=== PATIENT | male | born 1930 | race Caucasian/White ===

== ENCOUNTER 2016-10-25 07:54 | Emergency (ER) | payer MEDICARE, BC ==
[~2016-10-25] VITALS: Ht 172.7 cm; Wt 78.2 kg
[~2016-10-25 07:54] MED LIST: AMBIEN 10MG10 MG PO; ASPIRIN E.C. 8181 MG PO; BP MED; CEPHALEXIN500 M1 PO; DIOVAN160 MG PO; FLOMAX 0.40.4 MG/CAP PO; FLOMAX0.4 MG PO; GABAPENTIN100 MG PO; LEXAPRO 10MG10 MG PO; LOMOTIL 0.025 M1 TAB PO; LORTAB 5/500 501 TAB PO; NYSTATIN OR100 MU/ML PO; PROTONIX 40MG T40 MG PO; TRAMADOL/APAP 31 TAB PO; VICODIN PO
[2016-10-25 07:55] VITALS: TEMP 97.5
[2016-10-25 08:13] LABS: BASO % 0.4 % (0.0-2.0); EOS # 0.1 (0.0-0.7); EOS % 0.5 % (0-4.0); GRAN % 83.1 % (42.2-75.2); HEMATOCRIT 37.7 % (42.0-52.0); HEMOGLOBIN 12.6 g/dl (13.5-18.0); LYMPH # 0.6 (1.2-3.4); LYMPH % 5.9 % (20.0-51.0); MEAN CELL VOLUME 83 fl (80.0-100.0); MEAN CORPUSCULAR HEMOGLOBIN 28 pg (27.0-31.0); MEAN CORPUSCULAR HGB CONC 33 g/dl (33.0-37.0); MEAN PLATELET VOLUME 8.7 fl (7.4-10.4); MONO # 0.9 (0.1-0.6); MONO % 9.7 % (1.7-9.3); PLATELET COUNT 188 K/mm3 (130-400); RED BLOOD COUNT 4.57 M/mm3 (4.20-5.60); REDCELL DISTRIBUTION WIDTH-CV 15.2 % (11.5-14.5); WHITE BLOOD COUNT 9.6 K/mm3 (4.8-10.8)
[2016-10-25 08:25] LABS: ADJUSTED CALCIUM 10.3 mg/dL (8.4-10.2); ALBUMIN 4.2 gm/dL (3.5-5.0); BILIRUBIN,TOTAL 0.8 mg/dL (0.0-1.0); CALCIUM 10.5 mg/dL (8.4-10.2); CREATININE, serum 1.42 mg/dL (0.66-1.25); POTASSIUM 4.4 mmol/L (3.4-5.0); TOTAL PROTEIN 8.2 gm/dL (6.4-8.2)
[2016-10-25] MEDS ORDERED: NORCO 325 MG-101 TAB PO (08:32)
[2016-10-25] MEDS ORDERED: DIOVAN 160MG160 MG PO (08:34)
[2016-10-25 10:02] LABS: PH 6 (5-8); SQUAMOUS EPITHELIAL None Seen /hpf; URINE APPEARANCE Clear; URINE BACTERIA None Seen /hpf; URINE BILIRUBIN Negative (NEGATIVE); URINE BLOOD 3+ (NEGATIVE); URINE COLOR Yellow; URINE GLUCOSE Negative (NEGATIVE); URINE KETONE Negative (NEGATIVE); URINE UROBILINOGEN Negative (NEGATIVE); URINE WBC None Seen /hpf
[2016-10-25 11:15] VITALS: BP 141/86; PULSE 105
== END 2016-10-25 11:20 | disposition home or self-care (01) ==
LOC: COL.ER 07:54
PROVIDERS: Family Medicine
DX: R33.9 Retention of urine, unspecified (principal); I10 Essential (primary) hypertension; M54.5 Low back pain; G89.29 Other chronic pain; E87.1 Hypo-osmolality and hyponatremia; W18.30XA Fall on same level, unspecified, initial encounter; Y92.002 Bathroom of unspecified non-institutional (private) residence as the place of occurrence of the external cause
CPT/HCPCS: A4315; J7030

== ENCOUNTER 2016-11-24 07:29 | Emergency (ER) | payer MEDICARE, BC ==
[~2016-11-24] VITALS: Ht 172.7 cm; Wt 78.2 kg
[~2016-11-24 07:29] MED LIST changes: +DIOVAN 160MG160 MG PO; +NORCO 325 MG-101 TAB PO
[2016-11-24 07:33] VITALS: TEMP 98.2
[2016-11-24 08:45] VITALS: BP 146/92; PULSE 86
== END 2016-11-24 16:33 | disposition home or self-care (01) ==
LOC: COL.ER 07:29
DX: T84.020A Dislocation of internal right hip prosthesis, initial encounter (principal)
CPT/HCPCS: J1885; J3010; J7030; L1830

== ENCOUNTER 2016-11-30 18:55 | Inpatient (IN) | payer MEDICARE, BC ==
[~2016-11-30] VITALS: Ht 172.7 cm; Wt 76.3 kg
[2016-11-30] MEDS ORDERED: HYDROCODONE/ACETAMIN PO (19:15)
[2016-11-30 19:59] LABS: BASO % 0.4 % (0.0-2.0); GRAN # 5.5 (1.4-6.5); GRAN % 75.4 % (42.2-75.2); LYMPH # 0.8 (1.2-3.4); LYMPH % 10.6 % (20.0-51.0); MEAN CELL VOLUME 83 fl (80.0-100.0); MEAN CORPUSCULAR HGB CONC 33 g/dl (33.0-37.0); MEAN PLATELET VOLUME 8.7 fl (7.4-10.4); MONO % 13.3 % (1.7-9.3); PLATELET COUNT 204 K/mm3 (130-400); RED BLOOD COUNT 4.23 M/mm3 (4.20-5.60); REDCELL DISTRIBUTION WIDTH-CV 15.8 % (11.5-14.5); WHITE BLOOD COUNT 7.3 K/mm3 (4.8-10.8)
[2016-11-30 20:02] LABS: HEMATOCRIT 35.2 % (42.0-52.0); HEMOGLOBIN 11.7 g/dl (13.5-18.0); MEAN CORPUSCULAR HEMOGLOBIN 28 pg (27.0-31.0)
[2016-11-30 20:06] LABS: INR 1.1 (0.8-3.0); PROTHROMBIN TIME 12.7 SECONDS (9.7-12.8)
[2016-11-30 20:09] LABS: PARTIAL THROMBOPLASTIN TIME 28.6 SECONDS (26.0-37.0)
[2016-11-30 20:22] LABS: TROPONIN-I 0.023 ng/mL (0.000-0.034)
[2016-11-30 20:32] LABS: PH 6 (5-8); SQUAMOUS EPITHELIAL None Seen /hpf; URINE APPEARANCE Clear; URINE BACTERIA None Seen /hpf; URINE BILIRUBIN Negative (NEGATIVE); URINE BLOOD 1+ (NEGATIVE); URINE COLOR Yellow; URINE GLUCOSE Negative (NEGATIVE); URINE KETONE Negative (NEGATIVE)
[2016-11-30 21:28] LABS: ADJUSTED CALCIUM 9.7 mg/dL (8.4-10.2); ALBUMIN 3.7 gm/dL (3.5-5.0); CALCIUM 9.5 mg/dL (8.4-10.2); CREATININE, serum 1.06 mg/dL (0.66-1.25); POTASSIUM 4.6 mmol/L (3.4-5.0); TOTAL PROTEIN 7.5 gm/dL (6.4-8.2)
[2016-11-30 22:36] VITALS: BP 156/89; PULSE 107; TEMP 99.1
[2016-12-01 02:00] VITALS: BP 129/99; PULSE 109; TEMP 98.5
[2016-12-01 05:10] VITALS: BP 147/95; PULSE 107; TEMP 98.2
[2016-12-01 08:31] LABS: MEAN CELL VOLUME 82 fl (80.0-100.0); MEAN CORPUSCULAR HGB CONC 34 g/dl (33.0-37.0); MEAN PLATELET VOLUME 9.2 fl (7.4-10.4); PLATELET COUNT 185 K/mm3 (130-400); RED BLOOD COUNT 3.85 M/mm3 (4.20-5.60); REDCELL DISTRIBUTION WIDTH-CV 15.9 % (11.5-14.5); WHITE BLOOD COUNT 5.1 K/mm3 (4.8-10.8)
[2016-12-01 08:35] LABS: HEMATOCRIT 31.7 % (42.0-52.0); HEMOGLOBIN 10.8 g/dl (13.5-18.0); MEAN CORPUSCULAR HEMOGLOBIN 28 pg (27.0-31.0)
[2016-12-01 08:54] LABS: CALCIUM 8.7 mg/dL (8.4-10.2); CREATININE, serum 0.89 mg/dL (0.66-1.25); POTASSIUM 3.7 mmol/L (3.4-5.0)
[2016-12-01 10:11] VITALS: BP 115/66; PULSE 94; TEMP 97.8
[2016-12-01 13:44] VITALS: BP 159/73; PULSE 92; TEMP 97.6
[2016-12-01 18:55] VITALS: BP 151/74; PULSE 99; TEMP 97.8
[2016-12-01 20:42] VITALS: BP 144/89; PULSE 96; TEMP 98.5
[2016-12-02] VITALS (10 sets, daily range): BP systolic 113–167; BP diastolic 61–97; PULSE 68–122; TEMP 97.5–98.5
[2016-12-02 12:41] LABS: CALCIUM 8.6 mg/dL (8.4-10.2); CREATININE, serum 0.82 mg/dL (0.66-1.25); POTASSIUM 3.9 mmol/L (3.4-5.0)
[2016-12-02 12:53] LABS: TROPONIN-I 0.028 ng/mL (0.000-0.034)
[2016-12-03 00:40] LABS: BASO % 0.6 % (0.0-2.0); EOS # 0.1 (0.0-0.7); EOS % 2.3 % (0-4.0); GRAN % 56.6 % (42.2-75.2); LYMPH # 0.8 (1.2-3.4); LYMPH % 23.7 % (20.0-51.0); MEAN CELL VOLUME 84 fl (80.0-100.0); MEAN CORPUSCULAR HGB CONC 33 g/dl (33.0-37.0); MONO # 0.6 (0.1-0.6); MONO % 16.2 % (1.7-9.3); PLATELET COUNT 173 K/mm3 (130-400); RED BLOOD COUNT 4.02 M/mm3 (4.20-5.60); REDCELL DISTRIBUTION WIDTH-CV 15.6 % (11.5-14.5); WHITE BLOOD COUNT 3.5 K/mm3 (4.8-10.8)
[2016-12-03 00:43] LABS: HEMATOCRIT 33.6 % (42.0-52.0); HEMOGLOBIN 11.2 g/dl (13.5-18.0); MEAN CORPUSCULAR HEMOGLOBIN 28 pg (27.0-31.0)
[2016-12-03 01:50] VITALS: BP 145/98; PULSE 88; TEMP 98.6
[2016-12-03 05:12] VITALS: BP 134/75; PULSE 88; TEMP 98.9
[2016-12-03 08:08] LABS: CALCIUM 8.9 mg/dL (8.4-10.2); CREATININE, serum 0.89 mg/dL (0.66-1.25); POTASSIUM 3.6 mmol/L (3.4-5.0)
[2016-12-03 09:31] VITALS: BP 120/72; PULSE 91; TEMP 97.9
[2016-12-03] MEDS ORDERED: IPRATROPIUM BROM3 M1 IH (09:41)
[2016-12-03] MEDS ORDERED: LOPRESSOR 225 MG/TAB PO (09:49)
[2016-12-03] MEDS ORDERED: NORCO 325 MG-51 TAB PO (09:49)
[2016-12-03 13:41] VITALS: BP 150/88; PULSE 89; TEMP 98.6
[2016-12-03] MEDS ORDERED: TETRACYCLI500 MG/CAP PO (14:51)
[2016-12-03 14:56] VITALS: BP 150/88; PULSE 89; TEMP 98.6
== END 2016-12-03 16:10 | DRG 640 ==
LOC: COL.ER 18:55 → SURG 21:49
PROVIDERS: Emergency Medicine; Family Medicine
DX: E87.1 Hypo-osmolality and hyponatremia (principal); J18.9 Pneumonia, unspecified organism; N39.0 Urinary tract infection, site not specified; E86.1 Hypovolemia; K21.9 Gastro-esophageal reflux disease without esophagitis; J44.9 Chronic obstructive pulmonary disease, unspecified; B95.8 Unspecified staphylococcus as the cause of diseases classified elsewhere
CPT/HCPCS: 99222-AI; 99232-AI; 99239; A9502; J0456; J0696; J1650; J2785; J7030; J7050

== ENCOUNTER → 2016-12-07 | Outpatient (REF) ==
[~2016-12-07] MED LIST changes: +ALMACONE 360 M360 ML PO; +AMBIEN 5MG TABLE5 MG PO; +AMOXICILLIN 8751 TAB PO; +ARICEPT10 MG PO; +ATROVENT I0.2 MG/1 M IH; +BENADRYL25 M2 PO; +CARDIZEM 30MG T30 MG PO; +CLEOCIN HCL300 MG PO; +DULCOLAX S10 MG/SUPP RC; +FLONASEALLERGY NS; +GENTLE LAXATIVE10 MG RC; +HYDROCODONE/ACETAMIN PO; +IMODIUM 2MG CAPS2 MG PO; +IPRATROPIUM BROM3 M1 IH; +LOPRESSOR 225 MG/TAB PO; +LOPRESSOR 550 MG/TAB PO; +MILK OF MA400 MG/52; +MILK OF MA400 MG/52 PO; +NORCO 325 MG-51 TAB PO; +PREDNISONE20 MG PO; +PRESERVISIONLUT PO; +PULMICORT R1 MG/2 ML IH; +PULMICORT0.25 MG/2 IH; +RT ADVAIR 228 DISKUS IH; +TETRACYCLI500 MG/CAP PO; +TUMS500 MG; +TYLENOL 325MG325 MG PO; +TYLENOL SU650 MG/SUP RC; +ULTRAM 50MG TAB50 MG PO; +ZOFRAN ODT4 MG PO
== END ==
LOC: ZCOL.LAB 18:02
DX: Z01.89 Encounter for other specified special examinations (principal)

== ENCOUNTER 2016-12-16 11:57 | Emergency (ER) | payer MEDICARE, BC ==
[~2016-12-16] VITALS: Ht 172.7 cm; Wt 70.5 kg
[~2016-12-16 11:57] MED LIST changes: -ALMACONE 360 M360 ML PO; -AMBIEN 5MG TABLE5 MG PO; -AMOXICILLIN 8751 TAB PO; -ARICEPT10 MG PO; -ATROVENT I0.2 MG/1 M IH; -BENADRYL25 M2 PO; -CARDIZEM 30MG T30 MG PO; -CLEOCIN HCL300 MG PO; -DULCOLAX S10 MG/SUPP RC; -FLONASEALLERGY NS; -GENTLE LAXATIVE10 MG RC; -IMODIUM 2MG CAPS2 MG PO; -LOPRESSOR 550 MG/TAB PO; -MILK OF MA400 MG/52; -MILK OF MA400 MG/52 PO; -PREDNISONE20 MG PO; -PRESERVISIONLUT PO; -PULMICORT R1 MG/2 ML IH; -PULMICORT0.25 MG/2 IH; -RT ADVAIR 228 DISKUS IH; -TUMS500 MG; -TYLENOL 325MG325 MG PO; -TYLENOL SU650 MG/SUP RC; -ULTRAM 50MG TAB50 MG PO; -ZOFRAN ODT4 MG PO
[2016-12-16 11:58] VITALS: TEMP 97.4
[2016-12-16] MEDS ORDERED: ALMACONE 360 M360 ML PO (12:35)
[2016-12-16] MEDS ORDERED: GENTLE LAXATIVE10 MG RC (12:35)
[2016-12-16] MEDS ORDERED: MILK OF MA400 MG/52 PO (12:35)
[2016-12-16] MEDS ORDERED: TYLENOL 325MG325 MG PO (12:36)
[2016-12-16] MEDS ORDERED: TYLENOL SU650 MG/SUP RC (12:36)
[2016-12-16] MEDS ORDERED: IMODIUM 2MG CAPS2 MG PO (12:37)
[2016-12-16 12:52] LABS: MEAN CELL VOLUME 86 fl (80.0-100.0); MEAN CORPUSCULAR HGB CONC 33 g/dl (33.0-37.0); MEAN PLATELET VOLUME 8.8 fl (7.4-10.4); PLATELET COUNT 286 K/mm3 (130-400); RED BLOOD COUNT 4.21 M/mm3 (4.20-5.60); WHITE BLOOD COUNT 6.9 K/mm3 (4.8-10.8)
[2016-12-16 12:55] LABS: INR 1.2 (0.8-3.0); PROTHROMBIN TIME 13.2 SECONDS (9.7-12.8)
[2016-12-16 12:57] LABS: ADD PATHOLOGY DIFF REVIEW NO; HEMATOCRIT 36.2 % (42.0-52.0); HEMOGLOBIN 11.9 g/dl (13.5-18.0); MEAN CORPUSCULAR HEMOGLOBIN 28 pg (27.0-31.0); PARTIAL THROMBOPLASTIN TIME 25.3 SECONDS (26.0-37.0)
[2016-12-16 13:10] LABS: ADJUSTED CALCIUM 9.7 mg/dL (8.4-10.2); ALBUMIN 3.6 gm/dL (3.5-5.0); BILIRUBIN,TOTAL 0.9 mg/dL (0.0-1.0); CALCIUM 9.4 mg/dL (8.4-10.2); CREATININE, serum 1.9 mg/dL (0.66-1.25); POTASSIUM 4.8 mmol/L (3.4-5.0); TOTAL PROTEIN 7.7 gm/dL (6.4-8.2)
[2016-12-16 13:21] LABS: TROPONIN-I 0.015 ng/mL (0.000-0.034)
[2016-12-16 13:32] LABS: BAND 7 % (0-10); EOSINOPHIL 2 % (0-4); METAMYELOCYTE 1 % (0-0); NEUTROPHILS 67 % (42.0-75.2); TOTAL CELLS COUNTED 100
[2016-12-16 13:33] LABS: PLATELET ESTIMATE NORMAL (NORMAL)
[2016-12-16 17:00] VITALS: BP 135/87; PULSE 93
== END 2016-12-16 17:00 | disposition home or self-care (01) ==
LOC: COL.ER 11:57
PROVIDERS: Emergency Medicine
DX: Z02.89 Encounter for other administrative examinations (principal)
CPT/HCPCS: J7030

== ENCOUNTER 2016-12-17 10:46 | Inpatient (IN) | payer MEDICARE, BC ==
[~2016-12-17] VITALS: Ht 172.7 cm; Wt 73.2 kg
[~2016-12-17 10:46] MED LIST changes: +ALMACONE 360 M360 ML PO; +GENTLE LAXATIVE10 MG RC; +IMODIUM 2MG CAPS2 MG PO; +MILK OF MA400 MG/52 PO; +TYLENOL 325MG325 MG PO; +TYLENOL SU650 MG/SUP RC
[2016-12-17 11:10] LABS: BASO % 0.3 % (0.0-2.0); EOS % 0.1 % (0-4.0); GRAN # 10.1 (1.4-6.5); GRAN % 85.5 % (42.2-75.2); LYMPH # 0.8 (1.2-3.4); LYMPH % 6.9 % (20.0-51.0); MEAN CELL VOLUME 86 fl (80.0-100.0); MEAN CORPUSCULAR HEMOGLOBIN 28 pg (27.0-31.0); MEAN CORPUSCULAR HGB CONC 33 g/dl (33.0-37.0); MONO # 0.8 (0.1-0.6); MONO % 6.8 % (1.7-9.3); PLATELET COUNT 292 K/mm3 (130-400); RED BLOOD COUNT 4.25 M/mm3 (4.20-5.60); REDCELL DISTRIBUTION WIDTH-CV 17.1 % (11.5-14.5); WHITE BLOOD COUNT 11.8 K/mm3 (4.8-10.8)
[2016-12-17 11:13] LABS: HEMATOCRIT 36.7 % (42.0-52.0)
[2016-12-17 11:30] LABS: ALBUMIN 3.6 gm/dL (3.5-5.0); BILIRUBIN,TOTAL 1.3 mg/dL (0.0-1.0); CALCIUM 9.7 mg/dL (8.4-10.2); CREATININE, serum 1.61 mg/dL (0.66-1.25); POTASSIUM 5.4 mmol/L (3.4-5.0); TOTAL PROTEIN 7.8 gm/dL (6.4-8.2)
[2016-12-17 11:39] LABS: ARTERIAL BLD GAS O2 SATURATION 96.2 % (92-100); ARTERIAL BLOOD GAS BASE EXCESS -8.3 (-2-2); ARTERIAL BLOOD GAS HCO3 14.3 meq/L (22-26); ARTERIAL BLOOD GAS PHT 7.43 C (7.35-7.45); ARTERIAL BLOOD GAS PO2 90.3 mmHg (80-100); ARTERIAL BLOOD GAS PO2T 90.3 (80-100); ARTERIAL BLOOD GAS pH 7.43 (7.35-7.45); OXYHEMOGLOBIN 95.1 %
[2016-12-17 11:41] LABS: TROPONIN-I 0.042 ng/mL (0.000-0.034)
[2016-12-17 11:41] LABS: PH 5 (5-8); SQUAMOUS EPITHELIAL 0-2 /hpf; URINE APPEARANCE Clear; URINE BACTERIA None Seen /hpf; URINE BILIRUBIN Negative (NEGATIVE); URINE BLOOD Negative (NEGATIVE); URINE COLOR Yellow; URINE GLUCOSE Negative (NEGATIVE); URINE KETONE Negative (NEGATIVE); URINE RBC 0-2 /hpf; URINE UROBILINOGEN Negative (NEGATIVE); URINE WBC 0-2 /hpf
[2016-12-17 11:48] LABS: ALLEN TEST YES; ALLENS TEST RESULT PASS; ATS? YES
[2016-12-17 15:06] VITALS: BP 121/70; PULSE 110; TEMP 97.9
[2016-12-17 19:38] VITALS: BP 102/62; PULSE 100; TEMP 98.4
[2016-12-17 23:11] VITALS: BP 127/84; PULSE 109; TEMP 98.2
[2016-12-18 04:22] VITALS: BP 139/79; PULSE 108; TEMP 97.4
[2016-12-18 05:22] LABS: ARTERIAL BLD GAS O2 SATURATION 96.2 % (92-100); ARTERIAL BLD GAS TCO2 CT 18.9; ARTERIAL BLOOD GAS BASE EXCESS -4.8 (-2-2); ARTERIAL BLOOD GAS HCO3 18.1 meq/L (22-26); ARTERIAL BLOOD GAS PHT 7.45 C (7.35-7.45); ARTERIAL BLOOD GAS PO2 85.9 mmHg (80-100); ARTERIAL BLOOD GAS PO2T 85.9 (80-100); ARTERIAL BLOOD GAS pH 7.45 (7.35-7.45); OXYHEMOGLOBIN 95.4 %
[2016-12-18 05:23] LABS: ARTERIAL BLOOD GAS HCO3 18.1 meq/L (22-26); ARTERIAL BLOOD GAS PO2 85.9 mmHg (80-100); ARTERIAL BLOOD GAS pH 7.45 (7.35-7.45)
[2016-12-18 05:24] LABS: ALLEN TEST YES; ALLENS TEST RESULT PASS; ARTERIAL BLD GAS O2 SATURATION 96.2 % (92-100); ARTERIAL BLD GAS TCO2 CT 18.9; ARTERIAL BLOOD GAS BASE EXCESS -4.8 (-2-2); ATS? YES
[2016-12-18 07:50] LABS: BASO % 0.6 % (0.0-2.0); EOS # 0.1 (0.0-0.7); EOS % 1.3 % (0-4.0); GRAN # 4.8 (1.4-6.5); LYMPH # 0.8 (1.2-3.4); MEAN CELL VOLUME 86 fl (80.0-100.0); MEAN CORPUSCULAR HGB CONC 33 g/dl (33.0-37.0); MEAN PLATELET VOLUME 9.2 fl (7.4-10.4); MONO # 0.7 (0.1-0.6); MONO % 10.6 % (1.7-9.3); PLATELET COUNT 226 K/mm3 (130-400); RED BLOOD COUNT 3.34 M/mm3 (4.20-5.60); REDCELL DISTRIBUTION WIDTH-CV 17.2 % (11.5-14.5); WHITE BLOOD COUNT 6.3 K/mm3 (4.8-10.8)
[2016-12-18 07:53] VITALS: BP 138/75; PULSE 94; TEMP 98.9
[2016-12-18 07:57] LABS: CALCIUM 8.7 mg/dL (8.4-10.2); CREATININE, serum 1.25 mg/dL (0.66-1.25); POTASSIUM 4.5 mmol/L (3.4-5.0)
[2016-12-18 07:59] LABS: HEMATOCRIT 28.8 % (42.0-52.0); HEMOGLOBIN 9.4 g/dl (13.5-18.0); MEAN CORPUSCULAR HEMOGLOBIN 28 pg (27.0-31.0)
[2016-12-18 08:06] LABS: TROPONIN-I 0.024 ng/mL (0.000-0.034)
[2016-12-18 12:34] VITALS: BP 128/72; PULSE 105; TEMP 98.7
[2016-12-18 14:37] LABS: HEMATOCRIT 28.3 % (42.0-52.0); HEMOGLOBIN 9.3 g/dl (13.5-18.0)
[2016-12-18 15:59] VITALS: BP 125/74; PULSE 99; TEMP 98.3
[2016-12-18 19:44] VITALS: BP 127/66; PULSE 97; TEMP 98.6
[2016-12-18 23:44] VITALS: BP 117/86; PULSE 87; TEMP 98.5
[2016-12-19 04:05] VITALS: BP 158/92; PULSE 76; TEMP 98.4
[2016-12-19 08:39] VITALS: BP 130/79; PULSE 103; TEMP 97.9
[2016-12-19 09:12] LABS: BASO % 0.6 % (0.0-2.0); EOS # 0.2 (0.0-0.7); EOS % 3.8 % (0-4.0); GRAN # 3.3 (1.4-6.5); GRAN % 66.6 % (42.2-75.2); LYMPH # 0.8 (1.2-3.4); LYMPH % 16.9 % (20.0-51.0); MEAN CELL VOLUME 87 fl (80.0-100.0); MEAN CORPUSCULAR HGB CONC 33 g/dl (33.0-37.0); MEAN PLATELET VOLUME 9.4 fl (7.4-10.4); MONO # 0.6 (0.1-0.6); MONO % 11.7 % (1.7-9.3); PLATELET COUNT 241 K/mm3 (130-400); RED BLOOD COUNT 3.56 M/mm3 (4.20-5.60); REDCELL DISTRIBUTION WIDTH-CV 17.2 % (11.5-14.5)
[2016-12-19 09:31] LABS: HEMOGLOBIN 10.1 g/dl (13.5-18.0); MEAN CORPUSCULAR HEMOGLOBIN 28 pg (27.0-31.0)
[2016-12-19 09:40] LABS: ADJUSTED CALCIUM 9.8 mg/dL (8.4-10.2); ALBUMIN 2.7 gm/dL (3.5-5.0); BILIRUBIN,TOTAL 0.8 mg/dL (0.0-1.0); CALCIUM 8.8 mg/dL (8.4-10.2); CREATININE, serum 1.18 mg/dL (0.66-1.25); POTASSIUM 4.1 mmol/L (3.4-5.0); TOTAL PROTEIN 6.4 gm/dL (6.4-8.2)
[2016-12-19 11:45] VITALS: BP 101/60; PULSE 98; TEMP 98.6
[2016-12-19 15:24] VITALS: BP 122/75; PULSE 87; TEMP 98.1
[2016-12-19 20:55] VITALS: BP 117/62; PULSE 74; TEMP 98.2
[2016-12-19 23:23] VITALS: BP 166/85; PULSE 104; TEMP 98.7
[2016-12-20 04:05] VITALS: BP 148/94; PULSE 97; TEMP 98.9
[2016-12-20 07:40] VITALS: BP 149/85; PULSE 115; TEMP 97.6
[2016-12-20 07:52] LABS: MEAN CELL VOLUME 86 fl (80.0-100.0); MEAN CORPUSCULAR HGB CONC 33 g/dl (33.0-37.0); MEAN PLATELET VOLUME 9.4 fl (7.4-10.4); PLATELET COUNT 240 K/mm3 (130-400); RED BLOOD COUNT 3.82 M/mm3 (4.20-5.60); REDCELL DISTRIBUTION WIDTH-CV 17.1 % (11.5-14.5); WHITE BLOOD COUNT 5.3 K/mm3 (4.8-10.8)
[2016-12-20 07:58] LABS: HEMOGLOBIN 10.9 g/dl (13.5-18.0); MEAN CORPUSCULAR HEMOGLOBIN 29 pg (27.0-31.0)
[2016-12-20 08:16] LABS: ADJUSTED CALCIUM 9.9 mg/dL (8.4-10.2); ALBUMIN 2.8 gm/dL (3.5-5.0); BILIRUBIN,TOTAL 0.9 mg/dL (0.0-1.0); C-REACTIVE PROTEIN 5.1 mg/dL (0.0-0.9); CALCIUM 8.9 mg/dL (8.4-10.2); CREATININE, serum 1.14 mg/dL (0.66-1.25); POTASSIUM 3.9 mmol/L (3.4-5.0); TOTAL PROTEIN 6.6 gm/dL (6.4-8.2)
[2016-12-20 08:37] LABS: THYROID STIMULATING HORMONE 2.23 uIU/mL (0.465-4.680)
[2016-12-20 12:10] VITALS: BP 103/63; PULSE 73; TEMP 97.8
[2016-12-20 15:33] VITALS: BP 104/67; PULSE 73; TEMP 97.7
[2016-12-20 19:40] VITALS: BP 131/74; PULSE 82; TEMP 98.5
[2016-12-20 23:43] VITALS: BP 127/63; PULSE 71; TEMP 97.7
[2016-12-21 03:37] VITALS: BP 124/85; PULSE 67; TEMP 98.1
[2016-12-21 08:46] VITALS: BP 155/89; PULSE 82; TEMP 98.3
[2016-12-21 11:09] VITALS: BP 126/71; PULSE 72; TEMP 98.6
[2016-12-21] MEDS ORDERED: LOPRESSOR 550 MG/TAB PO (12:57)
[2016-12-21] MEDS ORDERED: CARDIZEM 30MG T30 MG PO (13:02)
[2016-12-21] MEDS ORDERED: NORCO 325 MG-51 TAB PO (13:03)
[2016-12-21] MEDS ORDERED: AMOXICILLIN 8751 TAB PO (13:17)
[2016-12-21 13:54] VITALS: BP 126/71; PULSE 72; TEMP 98.6
[2016-12-23 09:12] LABS: ATS? YES
== END 2016-12-21 15:29 | DRG 871 ==
LOC: COL.ER 10:46 → MEDICAL 12:25
PROVIDERS: Family Medicine; Nurse Practitioner Family
DX: A41.9 Sepsis, unspecified organism (principal); I21.4 Non-ST elevation (NSTEMI) myocardial infarction; K57.32 Diverticulitis of large intestine without perforation or abscess without bleeding; N17.9 Acute kidney failure, unspecified; E87.1 Hypo-osmolality and hyponatremia; I47.1 Supraventricular tachycardia; Z66 Do not resuscitate; J44.9 Chronic obstructive pulmonary disease, unspecified; I10 Essential (primary) hypertension; Z85.46 Personal history of malignant neoplasm of prostate; Z87.891 Personal history of nicotine dependence; E87.5 Hyperkalemia; Z85.01 Personal history of malignant neoplasm of esophagus; E86.0 Dehydration
CPT/HCPCS: 99231-AI; 99232-AI; 99233-AI; 99239; J1644; J1650; J2405; J2543; J7030; J7050

== ENCOUNTER 2017-02-22 10:56 | Emergency (ER) | payer MEDICARE, BC ==
[~2017-02-22 10:56] MED LIST changes: +AMOXICILLIN 8751 TAB PO; +CARDIZEM 30MG T30 MG PO; +LOPRESSOR 550 MG/TAB PO
[2017-02-22 10:59] VITALS: TEMP 97.8
[2017-02-22 11:54] LABS: BASO # 0.1 (0.0-0.2); BASO % 0.9 % (0.0-2.0); EOS # 0.1 (0.0-0.7); EOS % 1.9 % (0-4.0); GRAN # 3.9 (1.4-6.5); HEMATOCRIT 44.3 % (42.0-52.0); HEMOGLOBIN 14.4 g/dl (13.5-18.0); LYMPH # 1.5 (1.2-3.4); MEAN CELL VOLUME 88 fl (80.0-100.0); MEAN CORPUSCULAR HEMOGLOBIN 29 pg (27.0-31.0); MEAN CORPUSCULAR HGB CONC 33 g/dl (33.0-37.0); MEAN PLATELET VOLUME 9.1 fl (7.4-10.4); MONO # 0.8 (0.1-0.6); MONO % 12.9 % (1.7-9.3); PLATELET COUNT 208 K/mm3 (130-400); RED BLOOD COUNT 5.04 M/mm3 (4.20-5.60); WHITE BLOOD COUNT 6.4 K/mm3 (4.8-10.8)
[2017-02-22 11:56] LABS: PH 7 (5-8); SQUAMOUS EPITHELIAL 0-2 /hpf; URINE APPEARANCE Clear; URINE BACTERIA None Seen /hpf; URINE BILIRUBIN Negative (NEGATIVE); URINE BLOOD 1+ (NEGATIVE); URINE COLOR Yellow; URINE GLUCOSE Negative (NEGATIVE); URINE KETONE Negative (NEGATIVE); URINE UROBILINOGEN Negative (NEGATIVE); URINE WBC 0-2 /hpf
[2017-02-22 12:02] LABS: CALCIUM 9.7 mg/dL (8.4-10.2); CREATININE, serum 1.07 mg/dL (0.66-1.25); POTASSIUM 4.8 mmol/L (3.4-5.0)
[2017-02-22 12:13] LABS: TROPONIN-I 0.014 ng/mL (0.000-0.034)
[2017-02-22] MEDS ORDERED: BENADRYL25 M2 PO (14:09)
[2017-02-22] MEDS ORDERED: AMBIEN 10MG10 MG PO (14:09)
[2017-02-22 14:25] VITALS: BP 141/78; PULSE 89
== END 2017-02-22 14:26 | disposition home or self-care (01) ==
LOC: COL.ER 10:56
PROVIDERS: Emergency Medicine
DX: Z04.3 Encounter for examination and observation following other accident (principal); Z91.81 History of falling; W19.XXXA Unspecified fall, initial encounter; I10 Essential (primary) hypertension; J44.9 Chronic obstructive pulmonary disease, unspecified
CPT/HCPCS: J7030

== ENCOUNTER 2017-04-06 15:02 | Inpatient (IN) | payer MEDICARE, BC ==
[~2017-04-06] VITALS: Ht 170.2 cm; Wt 68.0 kg
[~2017-04-06 15:02] MED LIST changes: -AMBIEN 5MG TABLE5 MG PO; -ARICEPT10 MG PO; -ATROVENT I0.2 MG/1 M IH; -CLEOCIN HCL300 MG PO; -DULCOLAX S10 MG/SUPP RC; -FLONASEALLERGY NS; -MILK OF MA400 MG/52; -PREDNISONE20 MG PO; -PRESERVISIONLUT PO; -PULMICORT R1 MG/2 ML IH; -PULMICORT0.25 MG/2 IH; -RT ADVAIR 228 DISKUS IH; -TUMS500 MG; -ULTRAM 50MG TAB50 MG PO; -ZOFRAN ODT4 MG PO
[2017-04-06] MEDS ORDERED: MILK OF MA400 MG/52 (15:11)
[2017-04-06] MEDS ORDERED: ALMACONE 360 M360 ML PO (15:11)
[2017-04-06] MEDS ORDERED: DULCOLAX S10 MG/SUPP RC (15:12)
[2017-04-06] MEDS ORDERED: TYLENOL 325MG325 MG PO (15:13)
[2017-04-06] MEDS ORDERED: TYLENOL SU650 MG/SUP RC (15:13)
[2017-04-06] MEDS ORDERED: IMODIUM 2MG CAPS2 MG PO (15:14)
[2017-04-06] MEDS ORDERED: NORCO 325 MG-51 TAB PO (15:15)
[2017-04-06] MEDS ORDERED: PRESERVISIONLUT PO (15:15)
[2017-04-06] MEDS ORDERED: ATROVENT I0.2 MG/1 M IH (15:16)
[2017-04-06] MEDS ORDERED: ASPIRIN E.C. 8181 MG PO (15:16)
[2017-04-06] MEDS ORDERED: ZOFRAN ODT4 MG PO (15:17)
[2017-04-06] MEDS ORDERED: LOPRESSOR 550 MG/TAB PO (15:17)
[2017-04-06] MEDS ORDERED: TUMS500 MG (15:18)
[2017-04-06] MEDS ORDERED: CARDIZEM 30MG T30 MG PO (15:18)
[2017-04-06] MEDS ORDERED: AMBIEN 5MG TABLE5 MG PO (15:19)
[2017-04-06] MEDS ORDERED: BENADRYL25 M2 PO (15:19)
[2017-04-06] MEDS ORDERED: FLOMAX 0.40.4 MG/CAP PO (15:19)
[2017-04-06] MEDS ORDERED: ARICEPT10 MG PO (15:20)
[2017-04-06 15:37] LABS: BASO # 0.1 (0.0-0.2); BASO % 0.8 % (0.0-2.0); EOS # 0.2 (0.0-0.7); EOS % 3.2 % (0-4.0); GRAN # 3.8 (1.4-6.5); GRAN % 63.1 % (42.2-75.2); HEMOGLOBIN 12.1 g/dl (13.5-18.0); LYMPH # 1.1 (1.2-3.4); MEAN CELL VOLUME 80 fl (80.0-100.0); MEAN CORPUSCULAR HEMOGLOBIN 28 pg (27.0-31.0); MEAN CORPUSCULAR HGB CONC 35 g/dl (33.0-37.0); MEAN PLATELET VOLUME 8.4 fl (7.4-10.4); MONO # 0.8 (0.1-0.6); MONO % 13.4 % (1.7-9.3); PLATELET COUNT 167 K/mm3 (130-400); RED BLOOD COUNT 4.34 M/mm3 (4.20-5.60); REDCELL DISTRIBUTION WIDTH-CV 13.9 % (11.5-14.5)
[2017-04-06 15:39] LABS: INR 1.1 (0.8-3.0); PROTHROMBIN TIME 11.7 SECONDS (9.7-12.8)
[2017-04-06 15:42] LABS: HEMATOCRIT 34.8 % (42.0-52.0); PARTIAL THROMBOPLASTIN TIME 26.9 SECONDS (26.0-37.0)
[2017-04-06 15:50] LABS: ADJUSTED CALCIUM 9.6 mg/dL (8.4-10.2); ALANINE AMINOTRANSFERASE 20 U/L (21-72); ALBUMIN 3.6 gm/dL (3.5-5.0); ALKALINE PHOSPHATASE 58 U/L (50-136); ANION GAP 10 mmol/L (7-16); BILIRUBIN,TOTAL 0.6 mg/dL (0.0-1.0); BLOOD UREA NITROGEN 13 mg/dL (9-20); CALCIUM 9.3 mg/dL (8.4-10.2); CARBON DIOXIDE 19 mmol/L (22-30); CHLORIDE 91 mmol/L (98-107); CREATININE, serum 0.88 mg/dL (0.66-1.25); GLUCOSE 98 mg/dL (74-106); POTASSIUM 3.8 mmol/L (3.4-5.0); SODIUM 120 mmol/L (137-145); TOTAL PROTEIN 7.2 gm/dL (6.4-8.2)
[2017-04-06 16:03] LABS: TROPONIN-I < 0.012 ng/mL (0.000-0.034)
[2017-04-06 17:17] LABS: PH 6 (5-8); SQUAMOUS EPITHELIAL 0-2 /hpf; URINE APPEARANCE Clear; URINE BACTERIA None Seen /hpf; URINE BILIRUBIN Negative (NEGATIVE); URINE BLOOD Negative (NEGATIVE); URINE COLOR Yellow; URINE GLUCOSE Negative (NEGATIVE); URINE KETONE Trace (NEGATIVE); URINE RBC 0-2 /hpf; URINE UROBILINOGEN Negative (NEGATIVE); URINE WBC 0-2 /hpf
[2017-04-06 18:24] LABS: B-TYPE NATRIURETIC PEPTIDE 717 pg/mL (0-450)
[2017-04-06 18:33] VITALS: BP 134/76; PULSE 69; TEMP 98
[2017-04-06 20:00] VITALS: BP 152/76; PULSE 83; TEMP 97.5
[2017-04-07 04:00] VITALS: BP 154/78; PULSE 67; TEMP 97.6
[2017-04-07 07:16] LABS: BASO % 0.8 % (0.0-2.0); EOS # 0.2 (0.0-0.7); EOS % 3.2 % (0-4.0); GRAN # 3.6 (1.4-6.5); GRAN % 67.4 % (42.2-75.2); LYMPH # 0.8 (1.2-3.4); LYMPH % 15.8 % (20.0-51.0); MEAN CELL VOLUME 82 fl (80.0-100.0); MEAN CORPUSCULAR HGB CONC 34 g/dl (33.0-37.0); MEAN PLATELET VOLUME 8.8 fl (7.4-10.4); MONO # 0.7 (0.1-0.6); MONO % 12.4 % (1.7-9.3); PLATELET COUNT 164 K/mm3 (130-400); RED BLOOD COUNT 4.24 M/mm3 (4.20-5.60); REDCELL DISTRIBUTION WIDTH-CV 14.2 % (11.5-14.5); WHITE BLOOD COUNT 5.3 K/mm3 (4.8-10.8)
[2017-04-07 07:21] LABS: HEMATOCRIT 34.6 % (42.0-52.0); HEMOGLOBIN 11.9 g/dl (13.5-18.0); MEAN CORPUSCULAR HEMOGLOBIN 28 pg (27.0-31.0)
[2017-04-07 07:33] LABS: CALCIUM 8.6 mg/dL (8.4-10.2); CREATININE, serum 0.8 mg/dL (0.66-1.25); POTASSIUM 3.3 mmol/L (3.4-5.0)
[2017-04-07 10:01] VITALS: BP 144/103; PULSE 69; TEMP 98.4
[2017-04-07 13:08] VITALS: BP 130/58; PULSE 54
[2017-04-07 15:09] VITALS: BP 119/61; PULSE 55; TEMP 97.9
[2017-04-07 20:27] VITALS: BP 116/80; PULSE 77; TEMP 97.8
[2017-04-07 22:28] VITALS: BP 114/69; PULSE 60; TEMP 98.3
[2017-04-08 04:38] VITALS: BP 127/85; PULSE 77; TEMP 98.6
[2017-04-08 07:30] VITALS: BP 1055/77; BP 155/77; PULSE 88; TEMP 97
[2017-04-08 08:01] LABS: CALCIUM 9.5 mg/dL (8.4-10.2); CREATININE, serum 0.76 mg/dL (0.66-1.25); MAGNESIUM 1.6 mg/dL (1.6-2.3)
[2017-04-08 11:45] VITALS: BP 103/62; PULSE 68; TEMP 96.3
[2017-04-08 16:24] VITALS: BP 151/80; PULSE 82; TEMP 98.7
[2017-04-08 19:29] VITALS: BP 151/69; PULSE 94; TEMP 98.5
[2017-04-09 00:33] VITALS: BP 138/75; PULSE 74; TEMP 98.5
[2017-04-09 03:23] VITALS: BP 138/75; PULSE 84; TEMP 98
[2017-04-09 08:25] VITALS: BP 138/74; PULSE 78; TEMP 98.1
[2017-04-09 08:58] LABS: CALCIUM 8.5 mg/dL (8.4-10.2); CREATININE, serum 0.65 mg/dL (0.66-1.25)
[2017-04-09 09:29] LABS: BASO % 0.6 % (0.0-2.0); EOS # 0.2 (0.0-0.7); EOS % 3.2 % (0-4.0); GRAN # 3.8 (1.4-6.5); GRAN % 62.1 % (42.2-75.2); HEMOGLOBIN 11.8 g/dl (13.5-18.0); LYMPH # 1.3 (1.2-3.4); LYMPH % 20.8 % (20.0-51.0); MEAN CELL VOLUME 80 fl (80.0-100.0); MEAN CORPUSCULAR HEMOGLOBIN 28 pg (27.0-31.0); MEAN CORPUSCULAR HGB CONC 35 g/dl (33.0-37.0); MEAN PLATELET VOLUME 9.7 fl (7.4-10.4); MONO # 0.8 (0.1-0.6); MONO % 12.8 % (1.7-9.3); PLATELET COUNT 164 K/mm3 (130-400); RED BLOOD COUNT 4.24 M/mm3 (4.20-5.60); REDCELL DISTRIBUTION WIDTH-CV 14.7 % (11.5-14.5); WHITE BLOOD COUNT 6.2 K/mm3 (4.8-10.8)
[2017-04-09 11:11] VITALS: BP 121/65; PULSE 62; TEMP 97.4
[2017-04-09 16:04] VITALS: BP 157/89; PULSE 69
[2017-04-09 19:12] VITALS: BP 157/80; PULSE 79; TEMP 98.3
[2017-04-10 00:25] VITALS: BP 132/72; PULSE 98; TEMP 98.4
[2017-04-10 02:52] VITALS: BP 152/84; PULSE 77; TEMP 98.3
[2017-04-10 07:38] VITALS: BP 110/76; PULSE 91; TEMP 98.1
[2017-04-10 10:29] LABS: BASO # 0.1 (0.0-0.2); BASO % 0.6 % (0.0-2.0); EOS # 0.2 (0.0-0.7); EOS % 2.4 % (0-4.0); GRAN # 6.3 (1.4-6.5); GRAN % 76.3 % (42.2-75.2); HEMATOCRIT 40.8 % (42.0-52.0); HEMOGLOBIN 14.1 g/dl (13.5-18.0); LYMPH # 0.8 (1.2-3.4); LYMPH % 9.2 % (20.0-51.0); MEAN CELL VOLUME 81 fl (80.0-100.0); MEAN CORPUSCULAR HEMOGLOBIN 28 pg (27.0-31.0); MEAN CORPUSCULAR HGB CONC 35 g/dl (33.0-37.0); MEAN PLATELET VOLUME 9.5 fl (7.4-10.4); MONO # 0.9 (0.1-0.6); MONO % 11.3 % (1.7-9.3); PLATELET COUNT 221 K/mm3 (130-400); RED BLOOD COUNT 5.03 M/mm3 (4.20-5.60); REDCELL DISTRIBUTION WIDTH-CV 14.7 % (11.5-14.5); WHITE BLOOD COUNT 8.2 K/mm3 (4.8-10.8)
[2017-04-10 10:43] LABS: CALCIUM 9.5 mg/dL (8.4-10.2); CREATININE, serum 0.77 mg/dL (0.66-1.25); MAGNESIUM 1.5 mg/dL (1.6-2.3); POTASSIUM 3.9 mmol/L (3.4-5.0)
[2017-04-10 11:03] VITALS: BP 119/67; PULSE 79; TEMP 98.2
[2017-04-10 14:07] LABS: PH 5 (5-8); SQUAMOUS EPITHELIAL None Seen /hpf; URINE APPEARANCE Clear; URINE BACTERIA None Seen /hpf; URINE BILIRUBIN Negative (NEGATIVE); URINE BLOOD 1+ (NEGATIVE); URINE COLOR Yellow; URINE GLUCOSE Negative (NEGATIVE); URINE KETONE Negative (NEGATIVE); URINE WBC 0-2 /hpf
[2017-04-10 14:44] VITALS: BP 113/55; PULSE 81; TEMP 99.1
[2017-04-10 21:22] VITALS: BP 115/59; PULSE 92; TEMP 98.1
[2017-04-11] VITALS (7 sets, daily range): BP systolic 102–123; BP diastolic 44–67; PULSE 79–95; TEMP 97.4–98.3
[2017-04-11 11:28] LABS: CALCIUM 9.1 mg/dL (8.4-10.2); CREATININE, serum 0.85 mg/dL (0.66-1.25); MAGNESIUM 2.1 mg/dL (1.6-2.3); POTASSIUM 3.6 mmol/L (3.4-5.0)
[2017-04-12 03:18] VITALS: BP 122/63; PULSE 91; TEMP 98.7
[2017-04-12 07:29] VITALS: BP 140/64; PULSE 95; TEMP 97.7
[2017-04-12 10:53] LABS: CALCIUM 8.8 mg/dL (8.4-10.2); CREATININE, serum 0.96 mg/dL (0.66-1.25); POTASSIUM 4.8 mmol/L (3.4-5.0)
[2017-04-12 12:30] VITALS: BP 123/56; PULSE 111; TEMP 98.1
[2017-04-12 15:25] VITALS: BP 137/65; PULSE 96; TEMP 97.7
[2017-04-12 19:40] VITALS: BP 132/55; BP 166/79; PULSE 66; PULSE 84
[2017-04-12 22:34] VITALS: BP 115/63; PULSE 96; TEMP 98.4
[2017-04-13 04:10] VITALS: BP 136/66; PULSE 91; TEMP 98.5
[2017-04-13] MEDS ORDERED: PULMICORT R1 MG/2 ML IH (07:32)
[2017-04-13] MEDS ORDERED: NORCO 325 MG-51 TAB PO (07:35)
[2017-04-13] MEDS ORDERED: ULTRAM 50MG TAB50 MG PO (07:35)
[2017-04-13 07:45] LABS: CALCIUM 8.6 mg/dL (8.4-10.2); CREATININE, serum 0.89 mg/dL (0.66-1.25); POTASSIUM 5.3 mmol/L (3.4-5.0)
[2017-04-13 08:48] VITALS: BP 148/81; PULSE 89; TEMP 98.4
[2017-04-13] MEDS ORDERED: CLEOCIN HCL300 MG PO (09:14)
[2017-04-13] MEDS ORDERED: PREDNISONE20 MG PO (09:15)
[2017-04-13] MEDS ORDERED: RT ADVAIR 228 DISKUS IH (09:16)
[2017-04-13] MEDS ORDERED: FLONASEALLERGY NS (09:16)
[2017-04-13 11:42] VITALS: BP 148/81; PULSE 89; TEMP 98.4
== END 2017-04-13 13:29 | DRG 641 ==
LOC: COL.ER 15:02 → MEDICAL 17:17
PROVIDERS: Emergency Medicine; Internal Medicine; Nurse Practitioner Family; Physician Assistant
DX: E87.1 Hypo-osmolality and hyponatremia (principal); E44.0 Moderate protein-calorie malnutrition; I47.1 Supraventricular tachycardia; E87.5 Hyperkalemia; E86.1 Hypovolemia; J44.9 Chronic obstructive pulmonary disease, unspecified; I10 Essential (primary) hypertension; Z85.01 Personal history of malignant neoplasm of esophagus; Z87.891 Personal history of nicotine dependence; D64.9 Anemia, unspecified; T18.120A Food in esophagus causing compression of trachea, initial encounter
CPT/HCPCS: 99223-AI; 99232-AI; 99233-AI; 99239; J1650; J1940; J2543; J2930; J3475; J3480; J7030; J7050; J7512

== ENCOUNTER → 2017-04-06 | Outpatient (CLI) | payer MEDICARE, BC ==
[~2017-04-06] MED LIST changes: +AMBIEN 5MG TABLE5 MG PO; +ARICEPT10 MG PO; +ATROVENT I0.2 MG/1 M IH; +BENADRYL25 M2 PO; +CLEOCIN HCL300 MG PO; +DULCOLAX S10 MG/SUPP RC; +FLONASEALLERGY NS; +MILK OF MA400 MG/52; +PREDNISONE20 MG PO; +PRESERVISIONLUT PO; +PULMICORT R1 MG/2 ML IH; +PULMICORT0.25 MG/2 IH; +RT ADVAIR 228 DISKUS IH; +TUMS500 MG; +ULTRAM 50MG TAB50 MG PO; +ZOFRAN ODT4 MG PO
[2017-04-06 14:09] LABS: ADJUSTED CALCIUM 9.8 mg/dL (8.4-10.2); ALBUMIN 3.2 gm/dL (3.5-5.0); BILIRUBIN,TOTAL 0.6 mg/dL (0.0-1.0); CALCIUM 9.2 mg/dL (8.4-10.2); CREATININE, serum 0.93 mg/dL (0.66-1.25); POTASSIUM 3.8 mmol/L (3.4-5.0); TOTAL PROTEIN 6.4 gm/dL (6.4-8.2)
[2017-04-06 14:11] LABS: BASO % 0.7 % (0.0-2.0); EOS # 0.2 (0.0-0.7); EOS % 2.7 % (0-4.0); GRAN # 3.8 (1.4-6.5); GRAN % 63.9 % (42.2-75.2); LYMPH # 1.1 (1.2-3.4); LYMPH % 18.8 % (20.0-51.0); MEAN CELL VOLUME 81 fl (80.0-100.0); MEAN CORPUSCULAR HGB CONC 35 g/dl (33.0-37.0); MEAN PLATELET VOLUME 9.3 fl (7.4-10.4); MONO # 0.8 (0.1-0.6); MONO % 13.4 % (1.7-9.3); PLATELET COUNT 177 K/mm3 (130-400); RED BLOOD COUNT 4.08 M/mm3 (4.20-5.60); REDCELL DISTRIBUTION WIDTH-CV 14.2 % (11.5-14.5); WHITE BLOOD COUNT 5.9 K/mm3 (4.8-10.8)
[2017-04-06 14:13] LABS: HEMOGLOBIN 11.4 g/dl (13.5-18.0); MEAN CORPUSCULAR HEMOGLOBIN 28 pg (27.0-31.0)
== END ==
LOC: ZCOL.LAB 11:30
PROVIDERS: Family Medicine
DX: Z01.89 Encounter for other specified special examinations (principal)

== ENCOUNTER 2017-04-25 19:56 | Emergency (ER) | payer MEDICARE, BC ==
[~2017-04-25] VITALS: Ht 170.2 cm; Wt 69.1 kg
[~2017-04-25 19:56] MED LIST changes: +AMBIEN 5MG TABLE5 MG PO; +ARICEPT10 MG PO; +ATROVENT I0.2 MG/1 M IH; +CLEOCIN HCL300 MG PO; +DULCOLAX S10 MG/SUPP RC; +FLONASEALLERGY NS; +MILK OF MA400 MG/52; +PREDNISONE20 MG PO; +PRESERVISIONLUT PO; +PULMICORT R1 MG/2 ML IH; +RT ADVAIR 228 DISKUS IH; +TUMS500 MG; +ULTRAM 50MG TAB50 MG PO; +ZOFRAN ODT4 MG PO
[2017-04-25 19:57] VITALS: TEMP 98
[2017-04-25] MEDS ORDERED: ALMACONE 360 M360 ML PO (20:07)
[2017-04-25] MEDS ORDERED: DULCOLAX S10 MG/SUPP RC (20:07)
[2017-04-25] MEDS ORDERED: IMODIUM 2MG CAPS2 MG PO (20:08)
[2017-04-25] MEDS ORDERED: IPRATROPIUM BROM3 M1 IH (20:11)
[2017-04-25] MEDS ORDERED: PULMICORT0.25 MG/2 IH (20:14)
[2017-04-25 21:52] VITALS: BP 118/74; PULSE 98
== END 2017-04-25 21:53 | disposition home or self-care (01) ==
LOC: COL.ER 19:56
DX: T84.028A Dislocation of other internal joint prosthesis, initial encounter (principal); Z96.611 Presence of right artificial shoulder joint; I10 Essential (primary) hypertension; J44.9 Chronic obstructive pulmonary disease, unspecified; F03.90 Unspecified dementia, unspecified severity, without behavioral disturbance, psychotic disturbance, mood disturbance, and anxiety; Z85.01 Personal history of malignant neoplasm of esophagus

== ENCOUNTER → 2017-12-17 | Outpatient (REF) ==
[~2017-12-17] MED LIST changes: +PULMICORT0.25 MG/2 IH
[2017-12-17 13:28] LABS: BASO % 0.8 % (0.0-2.0); EOS # 0.2 (0.0-0.7); GRAN # 3.3 (1.4-6.5); LYMPH # 1.2 (1.2-3.4); LYMPH % 22.5 % (20.0-51.0); MEAN CELL VOLUME 81 fl (80.0-100.0); MEAN CORPUSCULAR HEMOGLOBIN 27 pg (27.0-31.0); MEAN CORPUSCULAR HGB CONC 33 g/dl (33.0-37.0); MEAN PLATELET VOLUME 9.8 fl (7.4-10.4); MONO # 0.4 (0.1-0.6); MONO % 8.5 % (1.7-9.3); PLATELET COUNT 169 K/mm3 (130-400); RED BLOOD COUNT 4.52 M/mm3 (4.20-5.60); REDCELL DISTRIBUTION WIDTH-CV 15.8 % (11.5-14.5)
[2017-12-17 13:29] LABS: HEMATOCRIT 36.8 % (42.0-52.0)
[2017-12-17 13:38] LABS: ALBUMIN 3.5 gm/dL (3.5-5.0); BILIRUBIN,TOTAL 0.4 mg/dL (0.0-1.0); CALCIUM 9.1 mg/dL (8.4-10.2); CREATININE, serum 1.07 mg/dL (0.66-1.25); TOTAL PROTEIN 7.2 gm/dL (6.4-8.2)
== END ==
LOC: ZCOL.LAB 13:13
PROVIDERS: Family Medicine
DX: N17.9 Acute kidney failure, unspecified (principal); J44.9 Chronic obstructive pulmonary disease, unspecified

== ENCOUNTER → 2019-01-26 | Outpatient (CLI) | payer MEDICARE, BC | LOC: COL.RAD 11:16 | DX: K57.32 Diverticulitis of large intestine without perforation or abscess without bleeding (principal); J90 Pleural effusion, not elsewhere classified; S22.070A Wedge compression fracture of T9-T10 vertebra, initial encounter for closed fracture; S22.080A Wedge compression fracture of T11-T12 vertebra, initial encounter for closed fracture; Z96.641 Presence of right artificial hip joint; Z95.828 Presence of other vascular implants and grafts | CPT/HCPCS: Q9967 ==